=== PATIENT | female | born 1945 | race Caucasian/White ===

== ENCOUNTER 2024-10-24 08:41 | Emergency (ER) | payer MEDICARE, SELFPAY ==
[2024-10-24] VITALS (8 sets, daily range): BP systolic 137–160; BP diastolic 54–91; PULSE 63–74; RESP 14–16; TEMP 36.7–36.8; O2SAT 94–98; BMI 29.2
--- NOTE | 2024-10-24 08:51 | XR_ITS ---
PROCEDURE INFORMATION: Exam: XR Chest Exam date and time: 10/24/2024 8:56 AM Age: 79 years old Clinical indication: Cough; Additional info: Productive cough TECHNIQUE: Imaging protocol: Radiologic exam of the chest. Views: 2 views. PA and Lateral COMPARISON: No relevant prior studies available. FINDINGS: Tubes, catheters and devices: None. Lungs: Mild bilateral perihilar and basilar interstitial lung opacities, suggesting pulmonary edema versus infiltrates. The peripheral lungs are otherwise clear. No consolidation. Pleural spaces: No pleural effusion. No pneumothorax. Heart/Mediastinum: Mediastinum and wilfredo appear unremarkable. Vasculature: Mild atherosclerotic calcification demonstrated within the aorta. Bones/joints: Moderate to severe generalized bony degenerative changes. Thoracic spinal kyphosis is demonstrated with lateral, sagittal imaging. The alignment of the vertebra appear otherwise unremarkable without dislocation. IMPRESSION: 1. Mild interstitial pulmonary edema versus infiltrates. 2. Chronic findings.
[2024-10-24 08:59] LABS: Coronavirus 19, PCR Not Detected (NotDetected); Influenza A, PCR Not Detected (NotDetected); Influenza B, PCR Not Detected (NotDetected)
--- NOTE | 2024-10-24 09:06 | HMH.EDGENADL ---
Discharge Plan Disposition Patient Disposition: Home, Self-Care Prescriptions Prescriptions: New doxycycline hyclate 100 mg capsule 100 mg PO BID 7 Days Qty: 14 0RF Referrals Follow up/Referrals: Provider,Referral, MD [Primary Care Provider] - See instructions Activity Restrictions/Add. Instructions Additional Instructions/Restrictions: At this time it was felt you are safe to be discharged home. If new or worsening symptoms please do not hesitate to return the emergency department. For your pneumonia please take your antibiotics as prescribed and follow-up with your family doctor this coming week as soon as you are able to ensure that we are heading in the right direction getting better. With respect to your conjunctivitis please apply a 0.5 cm strip in each eye twice a day for 5 days. Clinical Impressions Clinical Impression: Atypical pneumonia, Conjunctivitis Print Language Print Language: Tristanian Discharge ED Provider: Donis Cintron General Adult HPI General Chief complaint: Upper Respiratory Infection Stated complaint: sinus congestion, ear pain, sore throat Time Seen by Provider: 10/24/24 08:49 Mode of Arrival: Ambulatory Source of Information: Patient Limitations: No Limitations Description of Symptoms (Recalled from ER Triage Doc. by RN): pt states she has been sick approximately 3wks, she had an antibiotic in the begining (unsure what antibiotic.) pt reports a productive cough with thick yellow sputum, sore throat, R ear ache, R eye drainage and sore throat. History of Present Illness HPI narrative: Patient is 79-year-old female with no chronic lung comorbidities who presents emergency department for evaluation of cough and upper respiratory symptoms. Onset was acute, over the last 3 weeks. She originally had a cough that was getting better however subsequently over the last week has gotten worse. Multiple sick contacts at home. Cough is productive. There is associated right ear pressure. Over the last 24 hours she has woken up with discharge from her right eye. No corrective vision. No chest pain. She took a course of unknown antibiotics weeks ago with mild improvement. No other acute complaints at this time. Related Data Previous Rx's ?Medication ?Instructions ?Recorded doxycycline hyclate 100 mg capsule 100 mg PO BID atypical pneumonia 7 10/24/24 days #14 caps Allergies Allergy/AdvReac Type Severity Reaction Status Date / Time No Known Allergies Allergy Verified 10/24/24 09:30 [facility] Disclaimer: The information contained in this section may have been updated after the patient was seen, as this information can be updated by other users. Social History Smoking Status: Never smoker alcohol intake: never current occupational status: other Travel in the last 8 weeks: None ROS Obtained: Yes Systems reviewed as appropriate & no additional complaints except as documented Physical Exam General General appearance: alert and in no apparent distress Head Head exam: atraumatic and normocephalic Eye Eye exam: Present PERRL, EOMI and other (Mild drainage and conjunctival injection on the right, no exophthalmos or periorbital edema or erythema.) ENT ENT exam: Present mucous membranes moist and TM's normal bilaterally; Absent normal oropharynx (Erythematous posterior oropharynx with pustules over the back of the soft palate) Neck Neck exam: Present normal inspection Chest Chest inspection: Present normal inspection and symmetric chest wall rise Respiratory Respiratory exam: Present normal lung sounds bilaterally; Absent respiratory distress or wheezes Cardiovascular Cardiovascular exam: Present regular rate and normal rhythm Abdominal Exam Abdominal exam: Present soft Extremities Exam Extremities exam: Present normal inspection Neurological Exam Neurological exam: Present alert Psychiatric Psychiatric exam: Present normal affect Skin Skin exam: Present warm and dry Medical Decision Making Medical Records Screening: Per USPSTF and CDC recommendations, given the prevalence of disease in our region, it is our hospital?s policy to screen for HIV and viral Hepatitis for all patients aged 18 and over and those with ongoing risk factors. [place] Inquiry Pt receiving controlled substance: No Vital Signs: 10/24/24 08:51 10/24/24 08:56 10/24/24 09:01 Temperature 98.2 F Temperature Source Oral Pulse Rate 71 72 Pulse Rate [Left] 74 Respiratory Rate 14 Blood Pressure 137/64 141/77 H Blood Pressure [Right Arm] 151/91 H Blood Pressure Mean [Right Arm] 111 Blood Pressure Source [Right Arm] Automatic Cuff Blood Pressure Position [Right Arm] Sitting 02 Sat by Pulse Oximetry 96 97 95 Oxygen Delivery Method Room Air Room Air Room Air 10/24/24 09:10 10/24/24 09:15 10/24/24 09:20 Temperature Temperature Source Pulse Rate 72 67 65 Pulse Rate [Left] Respiratory Rate Blood Pressure 160/55 H 157/71 H 148/59 H Blood Pressure [Right Arm] Blood Pressure Mean [Right Arm] Blood Pressure Source [Right Arm] Blood Pressure Position [Right Arm] 02 Sat by Pulse Oximetry 97 97 96 Oxygen Delivery Method Room Air Room Air Room Air 10/24/24 09:25 Temperature Temperature Source Pulse Rate 63 Pulse Rate [Left] Respiratory Rate Blood Pressure 158/54 H Blood Pressure [Right Arm] Blood Pressure Mean [Right Arm] Blood Pressure Source [Right Arm] Blood Pressure Position [Right Arm] 02 Sat by Pulse Oximetry 94 L Oxygen Delivery Method Room Air Lab Data Lab Results 10/24/24 08:53: SARS-CoV-2 (PCR) Not detected, Influenza A Untype (PCR) Not detected, Influenza Type B (PCR) Not detected 10/24/24 09:06: Group A Strep Rapid Negative Orders (Tests/Meds): ED MEDICATIONS Discontinued Medications Generic Name Dose Route Start Last Admin Trade Name Freq PRN Reason Stop Dose Admin Acetaminophen 1,000 mg 10/24/24 09:06 10/24/24 09:29 Acetaminophen 500mg Tab PO 10/24/24 09:07 1,000 mg ONCE ONE Administration Belladonna Alkaloids 60 ml 10/24/24 09:06 10/24/24 09:30 Belladonna Alkaloids 60 Ml Ml PO 10/24/24 09:07 60 ml ONCE ONE Administration Erythromycin 0.5 gm 10/24/24 09:06 10/24/24 09:29 Erythromycin Base 1 Gm Oint...G. OP 10/24/24 09:07 0.5 gm ONCE ONE Administration Ibuprofen 600 mg 10/24/24 09:06 10/24/24 09:29 Ibuprofen 600 Mg Tablet PO 10/24/24 09:07 600 mg ONCE ONE Administration ORDERS Category Date Time Status CXR 2 view (NOT portable) [XR chest 2V] Stat Exams 10/24/24 08:51 Taken Rapid PCR Covid and Flu A/B Stat Lab 10/24/24 08:53 Completed Rapid Strep Scrn Group A [Strep Scrn Group A (Rapid)] Lab 10/24/24 09:06 Completed Stat Strep Screen Confirmation Stat Micro 10/24/24 09:06 Received Medical Decision Narrative: In summary patient is 79-year-old female past medical history described above presents emergency department for evaluation of subacute cough. Patient is hemodynamically stable nontoxic-appearing upon arrival, afebrile. Differential diagnosis includes bronchitis, postinfectious cough, pneumonia, strep pharyngitis, serial viral infections, among others. Workup with respect to this will be conducted with viral respiratory swabs, two-view chest x-ray. With respect to right-sided ear pain there is no anterior effacement of the pinna, pinna sign negative and no purulent middle ear effusion as well as a nonfocal neurologic exam therefore workup with labs and imaging with respect to this was considered but will be deferred at this time. Right-sided eye drainage is consistent with conjunctivitis. No concern for periorbital cellulitis or orbital cellulitis based on physical exam therefore limited treatment be conducted with topical erythromycin. Initial interventions include Tylenol, ibuprofen, GI cocktail. Initial workup reviewed by me, viral swab and strep swab negative. Chest x-ray informally interpreted by me, there appears to be scant interstitial opacities which given subacute cough is concerning for interstitial pneumonia. Upon repeat evaluation patient was resting comfortably in bed, saturating high 90s on room air. Given this patient is appropriate for discharge at this time will be discharged with a course of doxycycline and will follow-up with the family doctor next week and was given return precautions and verbalized understanding. Patient will also use erythromycin in her eyes twice a day for 5 days for possible bacterial conjunctivitis. Critical Care Critical Care Time Critical Care Time: No
[2024-10-24 09:21] LABS: Strep Scrn Group A (Rapid) Negative (Negative)
[2024-10-24] MEDS: ERYTHROMYCIN BASE 1 GM OINT...G. 0.5 GM OP (09:29)
[2024-10-24] MEDS: IBUPROFEN 600 MG TABLET PO (09:29)
[2024-10-24] MEDS: ACETAMINOPHEN 500MG TAB 1000 MG PO (09:29)
[2024-10-24] MEDS: BELLADONNA ALKALOIDS 60 ML ML PO (09:30)
== END 2024-10-24 10:44 | disposition home or self-care (01) ==
PROVIDERS: Emergency Provider Emergency Medicine
DX: J18.9 Pneumonia, unspecified organism (principal); H10.31 Unspecified acute conjunctivitis, right eye; R05.9 Cough, unspecified; J02.9 Acute pharyngitis, unspecified; H92.01 Otalgia, right ear; H57.9 Unspecified disorder of eye and adnexa
CPT/HCPCS: 71046; 87430; 87636; 99283